=== PATIENT | male | born 1940 | race Caucasian/White ===

== ENCOUNTER → 2017-02-16 | Outpatient (CLI) | payer OTHER ==
[~2017-02-16] MED LIST: AMLODIPINE5 MG PO; ASPIRIN325 MG PO; BUMEX1 MG PO; CARAFATE1 G1 PO; CIPRO250 MG PO; CIPRO500 MG PO; COREG25 MG PO; DOXYCYCLINE100 M4 PO; GLYBURIDE5 MG PO; IBUPROFEN 30 M800 MG PO; IMDUR30 MG PO; KEFLEX500 MG PO; LASIX40 MG PO; METFORMIN ER500 MG PO; NATURE'S BLEND F1 MG PO; NIACIN500 M3 PO; OMEGA 31000 MG PO; POTASSIUM20 MEQ PO; PRAVASTATIN SOD40 MG PO; PROTONIX TR40 M1 PO; QUINAPRIL40 MG PO; SILYMARIN1 POW; TRICOR145 MG PO; VICODIN 5/500 505 MG PO; XARELTO10 PO; [UNRECOGNIZED DRUG - OTHER] PO; [UNRECOGNIZED DRUG - OTHER] PO; [UNRECOGNIZED DRUG - OTHER] PO
[2017-02-16 12:11] LABS: BASO # 0.1 10*3/uL (0.0-0.1); BASO % 0.7 % (0.0-1.0); EOS # 0.6 10*3/uL (0.0-0.4); EOS % 5.2 % (1.0-4.0); HEMATOCRIT 39.1 % (42.0-52.0); HEMOGLOBIN 13.6 g/dl (14.0-18.0); IG # 0.1 10*3/uL (0.0-0.1); LYMPH # 2.4 10*3/uL (1.3-4.4); LYMPH % 20.5 % (27.0-41.0); MEAN CELL VOLUME 88.3 fl (80.0-94.0); MEAN CORPUSCULAR HGB 30.7 pg (27.0-31.0); MEAN CORPUSCULAR HGB CONC 34.8 g/dl (33.0-37.0); MEAN PLATELET VOLUME 9.9 fl (9.6-12.3); MONO % 8.2 % (3.0-9.0); NEUT # 7.7 10*3/uL (2.3-7.9); PLATELET COUNT AUTOMATED 226 10*3/uL (130-400); RED BLOOD COUNT 4.43 10*6/uL (4.50-5.90); RED CELL DISTRI WIDTH 13.1 % (0-14.5); WHITE BLOOD COUNT 11.8 10*3/uL (4.8-10.8)
== END | disposition home or self-care (01) ==
LOC: LAB 11:59
PROVIDERS: Family Medicine
DX: L02.214 Cutaneous abscess of groin (principal)

== ENCOUNTER → 2018-01-01 | Outpatient (CLI) | payer OTHER ==
[2018-01-01 15:26] LABS: HEMATOCRIT 38.4 % (42.0-52.0); HEMOGLOBIN 13.5 g/dl (14.0-18.0); MEAN CELL VOLUME 90.6 fl (80.0-94.0); MEAN CORPUSCULAR HGB 31.8 pg (27.0-31.0); MEAN CORPUSCULAR HGB CONC 35.2 g/dl (33.0-37.0); MEAN PLATELET VOLUME 9.6 fl (9.6-12.3); PLATELET COUNT AUTOMATED 201 10*3/uL (130-400); RED BLOOD COUNT 4.24 10*6/uL (4.50-5.90); RED CELL DISTRI WIDTH 13.4 % (0-14.5); WHITE BLOOD COUNT 16.8 10*3/uL (4.8-10.8)
[2018-01-01 15:37] LABS: ALBUMIN 2.9 gm/dl (3.1-4.5); BILIRUBIN, DIRECT 0.2 mg/dL (0.0-0.2); CREATININE 1.83 mg/dL (0.70-1.30); POTASSIUM 4.3 mmol/L (3.5-5.1); TOTAL PROTEIN 6.2 gm/dL (6.4-8.2)
[2018-01-01 15:52] LABS: ATYPICAL LYMPHS 1 % (0-0); PLATELET SUFFICIENCY NORMAL (NORMAL); TOTAL CELLS COUNTED 100 #CELLS
== END | disposition home or self-care (01) ==
LOC: LAB 14:21 → US 15:00
PROVIDERS: Family Medicine
DX: N43.3 Hydrocele, unspecified (principal); R19.04 Left lower quadrant abdominal swelling, mass and lump

== ENCOUNTER → 2018-01-09 | Outpatient (CLI) | payer OTHER ==
[2018-01-09 11:54] LABS: BASO % 0.2 % (0.0-1.0); HEMATOCRIT 37.9 % (42.0-52.0); HEMOGLOBIN 12.9 g/dl (14.0-18.0); LYMPH # 0.9 10*3/uL (1.3-4.4); LYMPH % 6.4 % (27.0-41.0); MEAN CELL VOLUME 90.7 fl (80.0-94.0); MEAN CORPUSCULAR HGB 30.9 pg (27.0-31.0); MEAN PLATELET VOLUME 9.2 fl (9.6-12.3); MONO # 0.5 10*3/uL (0.1-1.0); MONO % 3.2 % (3.0-9.0); NEUT # 12.3 10*3/uL (2.3-7.9); NEUT % 88.5 % (47.0-73.0); PLATELET COUNT AUTOMATED 246 10*3/uL (130-400); RED BLOOD COUNT 4.18 10*6/uL (4.50-5.90); WHITE BLOOD COUNT 13.9 10*3/uL (4.8-10.8)
== END | disposition home or self-care (01) ==
LOC: LAB 11:33
PROVIDERS: Family Medicine
DX: D72.829 Elevated white blood cell count, unspecified (principal)

== ENCOUNTER → 2018-04-06 | Outpatient (CLI) | payer OTHER ==
[~2018-04-06] MED LIST changes: +ALPHA LIPOIC A600 MG PO; +AMARYL2 MG PO; +BAYER ASPIRIN C81 MG PO; +CYTOMEL5 MCG PO; +DOXYCYCLINE100 MG PO; +FISH OIL CONC1000 M1 PO; +LATANOPROST2.5 ML OU; +MAXITROL OPHTHAL5 ML OPH; +PERCOCET 10-321 EACH PO; +PREDNISONE20 M1 PO; +SYNTHROID,LEVO75 MCG PO; +VITAMIN D-32000 UNIT PO
[2018-04-06 15:00] LABS: BASO # 0.1 10*3/uL (0.0-0.1); BASO % 0.2 % (0.0-1.0); EOS % 0.1 % (1.0-4.0); HEMATOCRIT 39.5 % (42.0-52.0); HEMOGLOBIN 13.5 g/dl (14.0-18.0); LYMPH # 1.3 10*3/uL (1.3-4.4); LYMPH % 6.3 % (27.0-41.0); MEAN CELL VOLUME 90.6 fl (80.0-94.0); MEAN CORPUSCULAR HGB CONC 34.2 g/dl (33.0-37.0); MEAN PLATELET VOLUME 9.6 fl (9.6-12.3); MONO % 4.5 % (3.0-9.0); NEUT # 18.8 10*3/uL (2.3-7.9); NEUT % 88.1 % (47.0-73.0); PLATELET COUNT AUTOMATED 204 10*3/uL (130-400); RED BLOOD COUNT 4.36 10*6/uL (4.50-5.90); RED CELL DISTRI WIDTH 13.7 % (0-14.5); WHITE BLOOD COUNT 21.3 10*3/uL (4.8-10.8)
[2018-04-06 15:24] LABS: ALBUMIN 3.3 gm/dl (3.1-4.5); BILIRUBIN, DIRECT 0.3 mg/dL (0.0-0.2); CREATININE 1.8 mg/dL (0.70-1.30); POTASSIUM 4.3 mmol/L (3.5-5.1); THYROXINE (T4) TOTAL 6.7 ug/dl (4.5-12.1); TOTAL PROTEIN 7.1 gm/dL (6.4-8.2)
[2018-04-06 15:32] LABS: THYROID STIM HORMONE (HS) 0.468 uIU/ml (0.358-4.75)
[2018-04-07 07:09] LABS: FREE T3 010389 2.7 pg/mL (2.0-4.4)
[2018-04-07 08:11] LABS: ANTI-STREPTOLYSIN O AB 006031 <20.0 IU/mL (0.0-200.0)
== END ==
LOC: LAB 14:41
PROVIDERS: Family Medicine
DX: E11.9 Type 2 diabetes mellitus without complications (principal); M54.5 Low back pain; M79.1 Myalgia; G83.9 Paralytic syndrome, unspecified

== ENCOUNTER 2018-04-08 13:59 | Inpatient (IN) | payer OTHER ==
[~2018-04-08] VITALS: Ht 177.8 cm; Wt 116.2 kg
--- NOTE | ~2018-04-08 | PROC NOTE ---
[place], [place] PROCEDURE NOTE NAME: [id number] UNIT #: [id number] ROOM: 402 DOCTOR: JONNATHAN PÉREZ MD BIRTHDATE: [birth year] DOS: 04/11/2018 PREOPERATIVE DIAGNOSIS: Right arm abscess. POSTOPERATIVE DIAGNOSIS: Right arm abscess. PROCEDURE: Incision and drainage, right arm abscess. SURGEON: Jonnathan Pérez MD PARK INTERPRETER: ALEJANDRA. ANESTHESIA: MAC with local. INDICATIONS: This is a 77-year-old gentleman admitted with right arm cellulitis and now has developed an abscess. It was decided to take the patient to the operating room for an incision and drainage of this right arm abscess. The procedure and its complications were explained to the patient in detail preoperatively. Complications that were discussed included but were not limited to, bleeding, prolonged pain, and damage to underlying vital structures. He agreed to proceed. DESCRIPTION OF PROCEDURE: After identifying the patient, the patient was brought to the operating suite and laid in the supine position. After IV sedation was administered, a timeout procedure was called and the patient's arm was placed in an appropriate position so that the abscess which was in the posterior aspect of the arm could be reached safely. The parts were then painted and draped in the usual sterile fashion. An incision was marked with the help of marking pen and local anesthesia was infiltrated. Thereafter, an incision was made and the abscess cavity was entered. Minimal seropurulent discharge was encountered and a specimen of this was sent for culture and sensitivity. Thereafter, the abscess cavity was packed with the help of a quarter inch iodoform pack and a dressing was placed. The patient was brought back to the recovery room in stable fashion. There were no complications. Dr. Jonnathan Pérez, the attending surgeon, was present throughout the operating case. Jonnathan Pérez MD CM:PROCNOTE:PROCEDURE NOTE [id number] JONNATHAN PÉREZ MD
[~2018-04-08 13:59] MED LIST changes: -ALPHA LIPOIC A600 MG PO; -AMARYL2 MG PO; -BAYER ASPIRIN C81 MG PO; -CYTOMEL5 MCG PO; -DOXYCYCLINE100 MG PO; -FISH OIL CONC1000 M1 PO; -LATANOPROST2.5 ML OU; -MAXITROL OPHTHAL5 ML OPH; -PERCOCET 10-321 EACH PO; -PREDNISONE20 M1 PO; -SYNTHROID,LEVO75 MCG PO; -VITAMIN D-32000 UNIT PO
[2018-04-08 14:03] VITALS: BP 138/64
[2018-04-08 14:36] LABS: BASO # 0.1 10*3/uL (0.0-0.1); BASO % 0.3 % (0.0-1.0); EOS # 0.3 10*3/uL (0.0-0.4); EOS % 1.5 % (1.0-4.0); LYMPH # 2.5 10*3/uL (1.3-4.4); LYMPH % 13.4 % (27.0-41.0); MEAN CELL VOLUME 91.8 fl (80.0-94.0); MEAN CORPUSCULAR HGB 30.6 pg (27.0-31.0); MEAN CORPUSCULAR HGB CONC 33.3 g/dl (33.0-37.0); MONO # 1.1 10*3/uL (0.1-1.0); MONO % 5.8 % (3.0-9.0); NEUT # 14.5 10*3/uL (2.3-7.9); NEUT % 78.6 % (47.0-73.0); PLATELET COUNT AUTOMATED 203 10*3/uL (130-400); RED BLOOD COUNT 3.92 10*6/uL (4.50-5.90); WHITE BLOOD COUNT 18.5 10*3/uL (4.8-10.8)
[2018-04-08] MEDS ORDERED: BAYER ASPIRIN C81 MG PO (14:40)
[2018-04-08] MEDS ORDERED: ALPHA LIPOIC A600 MG PO (14:40)
[2018-04-08] MEDS ORDERED: SYNTHROID,LEVO75 MCG PO (14:41)
[2018-04-08] MEDS ORDERED: CYTOMEL5 MCG PO (14:42)
[2018-04-08] MEDS ORDERED: QUINAPRIL40 MG PO (14:42)
[2018-04-08] MEDS ORDERED: PREDNISONE20 M1 PO (14:44)
[2018-04-08] MEDS ORDERED: PERCOCET 10-321 EACH PO (14:52)
[2018-04-08 14:53] LABS: ALBUMIN 2.8 gm/dl (3.1-4.5); ALKALINE PHOSPHATASE 75 U/L (45-117); CHLORIDE 109 mmol/L (98-107); CREATININE 2.13 mg/dL (0.70-1.30); POTASSIUM 4.2 mmol/L (3.5-5.1); SGOT/AST 23 IU/L (3-35); SGPT/ALT 25 U/L (12-78); SODIUM 140 mmol/L (136-145); TOTAL PROTEIN 6.6 gm/dL (6.4-8.2)
[2018-04-08] MEDS ORDERED: LASIX40 MG PO (14:53)
[2018-04-08] MEDS ORDERED: LATANOPROST2.5 ML OU (14:55)
[2018-04-08 14:56] LABS: BUN 49 mg/dl (7-24)
[2018-04-08 14:57] LABS: TROPONIN I < 0.015 ng/ml (<0.045)
[2018-04-08 15:33] LABS: BILIRUBIN NEGATIVE (NEGATIVE); BLOOD NEGATIVE (NEGATIVE); CLARITY SL CLOUDY (CLEAR); COLOR YELLOW (YELLOW); GLUCOSE NEGATIVE (NEGATIVE); KETONE NEGATIVE (NEGATIVE); LEUKO ESTERASE TRACE (NEGATIVE); NITRITE NEGATIVE (NEGATIVE); SPECIFIC GRAVITY >= 1.030 (1.005-1.030); UROBILINOGEN 0.2 E.U./dl (0.2-1.0)
[2018-04-08 15:47] LABS: HYALINE CAST TNTC
[2018-04-08 15:50] VITALS: BP 125/65
[2018-04-08 16:00] VITALS: BP 137/80
[2018-04-08 16:18] VITALS: BP 137/80
[2018-04-08] MEDS ORDERED: FISH OIL CONC1000 M1 PO (17:56)
[2018-04-08] MEDS ORDERED: AMARYL2 MG PO (17:57)
[2018-04-08] MEDS ORDERED: MAXITROL OPHTHAL5 ML OPH (18:02)
[2018-04-08 20:00] VITALS: BP 130/60
[2018-04-08 22:31] LABS: CREATININE 1.92 mg/dL (0.70-1.30); POTASSIUM 3.9 mmol/L (3.5-5.1)
[2018-04-09] VITALS: BP 146/61
[2018-04-09 06:42] LABS: HEMATOCRIT 37.4 % (42.0-52.0); HEMOGLOBIN 12.2 g/dl (14.0-18.0); MEAN CELL VOLUME 90.8 fl (80.0-94.0); MEAN CORPUSCULAR HGB 29.6 pg (27.0-31.0); MEAN CORPUSCULAR HGB CONC 32.6 g/dl (33.0-37.0); MEAN PLATELET VOLUME 9.8 fl (9.6-12.3); PLATELET COUNT AUTOMATED 226 10*3/uL (130-400); RED BLOOD COUNT 4.12 10*6/uL (4.50-5.90); RED CELL DISTRI WIDTH 13.1 % (0-14.5); WHITE BLOOD COUNT 15.3 10*3/uL (4.8-10.8)
[2018-04-09 07:05] LABS: POTASSIUM 4.2 mmol/L (3.5-5.1)
[2018-04-09 07:17] LABS: CREATININE 1.81 mg/dL (0.70-1.30); PHOSPHOROUS 3.3 mg/dL (2.5-4.9); THYROID STIM HORMONE (HS) 0.458 uIU/ml (0.358-4.75)
[2018-04-09 07:40] LABS: VITAMIN D, 25-HYDROXY 22.1 ng/mL (30-100)
[2018-04-09 07:56] LABS: PLATELET SUFFICIENCY NORMAL (NORMAL); TOTAL CELLS COUNTED 100 #CELLS
[2018-04-09 08:00] VITALS: BP 154/73
[2018-04-09 10:32] VITALS: BP 96/54
[2018-04-09 12:00] VITALS: BP 143/67
[2018-04-09 16:00] VITALS: BP 141/67
[2018-04-09 20:00] VITALS: BP 136/59
[2018-04-10] VITALS: BP 140/60
[2018-04-10 07:49] LABS: BASO # 0.1 10*3/uL (0.0-0.1); BASO % 0.5 % (0.0-1.0); EOS # 0.2 10*3/uL (0.0-0.4); EOS % 1.7 % (1.0-4.0); HEMATOCRIT 38.7 % (42.0-52.0); HEMOGLOBIN 12.7 g/dl (14.0-18.0); LYMPH # 2.2 10*3/uL (1.3-4.4); LYMPH % 17.5 % (27.0-41.0); MEAN CELL VOLUME 91.7 fl (80.0-94.0); MEAN CORPUSCULAR HGB 30.1 pg (27.0-31.0); MEAN CORPUSCULAR HGB CONC 32.8 g/dl (33.0-37.0); MEAN PLATELET VOLUME 9.5 fl (9.6-12.3); MONO # 0.8 10*3/uL (0.1-1.0); MONO % 6.1 % (3.0-9.0); NEUT # 9.3 10*3/uL (2.3-7.9); NEUT % 73.7 % (47.0-73.0); PLATELET COUNT AUTOMATED 270 10*3/uL (130-400); RED BLOOD COUNT 4.22 10*6/uL (4.50-5.90); RED CELL DISTRI WIDTH 13.1 % (0-14.5); WHITE BLOOD COUNT 12.6 10*3/uL (4.8-10.8)
[2018-04-10 07:56] LABS: CREATININE 1.55 mg/dL (0.70-1.30); POTASSIUM 4.2 mmol/L (3.5-5.1)
[2018-04-10 08:00] VITALS: BP 166/73
[2018-04-10 12:00] VITALS: BP 147/65
[2018-04-10 16:00] VITALS: BP 153/66
[2018-04-10 20:00] VITALS: BP 135/67
[2018-04-11] VITALS: BP 173/80
[2018-04-11 06:25] LABS: BASO % 0.2 % (0.0-1.0); EOS % 0.2 % (1.0-4.0); HEMATOCRIT 35.3 % (42.0-52.0); HEMOGLOBIN 11.6 g/dl (14.0-18.0); LYMPH # 1.6 10*3/uL (1.3-4.4); LYMPH % 13.4 % (27.0-41.0); MEAN CELL VOLUME 90.1 fl (80.0-94.0); MEAN CORPUSCULAR HGB 29.6 pg (27.0-31.0); MEAN CORPUSCULAR HGB CONC 32.9 g/dl (33.0-37.0); MEAN PLATELET VOLUME 9.4 fl (9.6-12.3); MONO # 0.8 10*3/uL (0.1-1.0); MONO % 6.1 % (3.0-9.0); NEUT # 9.7 10*3/uL (2.3-7.9); NEUT % 79.6 % (47.0-73.0); PLATELET COUNT AUTOMATED 281 10*3/uL (130-400); RED BLOOD COUNT 3.92 10*6/uL (4.50-5.90); RED CELL DISTRI WIDTH 12.8 % (0-14.5); WHITE BLOOD COUNT 12.2 10*3/uL (4.8-10.8)
[2018-04-11 06:37] LABS: CREATININE 1.44 mg/dL (0.70-1.30); POTASSIUM 3.6 mmol/L (3.5-5.1)
[2018-04-11 11:16] VITALS: BP 184/85
[2018-04-11 11:42] VITALS: BP 162/80
[2018-04-11 11:57] VITALS: BP 164/79
[2018-04-11 12:12] VITALS: BP 167/76
[2018-04-11] MEDS ORDERED: DOXYCYCLINE100 MG PO (14:26)
[2018-04-11] MEDS ORDERED: VITAMIN D-32000 UNIT PO (14:26)
== END 2018-04-11 15:59 | disposition home or self-care (01) | DRG 682 ==
LOC: ED 13:59 → EDHOLD 15:43 → 4E 15:43
PROVIDERS: Internal Medicine; Internal Medicine Hospice and Palliative Medicine; Physician Assistant
PROC: 0H9BXZZ Drainage of Right Upper Arm Skin, External Approach (ICD-10-PCS; principal; 2018-04-11)
DX: N17.0 Acute kidney failure with tubular necrosis (principal); E43 Unspecified severe protein-calorie malnutrition; E11.65 Type 2 diabetes mellitus with hyperglycemia; E87.0 Hyperosmolality and hypernatremia; E11.51 Type 2 diabetes mellitus with diabetic peripheral angiopathy without gangrene; D64.9 Anemia, unspecified; E11.9 Type 2 diabetes mellitus without complications; L03.113 Cellulitis of right upper limb; L02.413 Cutaneous abscess of right upper limb; E66.01 Morbid (severe) obesity due to excess calories; M54.5 Low back pain; N18.3 Chronic kidney disease, stage 3 (moderate); I12.9 Hypertensive chronic kidney disease with stage 1 through stage 4 chronic kidney disease, or unspecified chronic kidney disease; E87.8 Other disorders of electrolyte and fluid balance, not elsewhere classified; M48.061 Spinal stenosis, lumbar region without neurogenic claudication; R80.1 Persistent proteinuria, unspecified; G89.29 Other chronic pain; Z96.1 Presence of intraocular lens; I25.10 Atherosclerotic heart disease of native coronary artery without angina pectoris; M10.9 Gout, unspecified; M19.90 Unspecified osteoarthritis, unspecified site; R79.89 Other specified abnormal findings of blood chemistry; Z79.82 Long term (current) use of aspirin; Z79.899 Other long term (current) drug therapy; Z98.49 Cataract extraction status, unspecified eye; Z83.3 Family history of diabetes mellitus; Z85.820 Personal history of malignant melanoma of skin; Z90.49 Acquired absence of other specified parts of digestive tract; Z82.49 Family history of ischemic heart disease and other diseases of the circulatory system; Z80.1 Family history of malignant neoplasm of trachea, bronchus and lung; Z79.84 Long term (current) use of oral hypoglycemic drugs; Z68.36 Body mass index [BMI] 36.0-36.9, adult

== ENCOUNTER → 2018-04-13 | Outpatient (CLI) | payer OTHER ==
[~2018-04-13] MED LIST changes: +ALPHA LIPOIC A600 MG PO; +AMARYL2 MG PO; +BAYER ASPIRIN C81 MG PO; +CYTOMEL5 MCG PO; +DOXYCYCLINE100 MG PO; +FISH OIL CONC1000 M1 PO; +LATANOPROST2.5 ML OU; +MAXITROL OPHTHAL5 ML OPH; +PERCOCET 10-321 EACH PO; +PREDNISONE20 M1 PO; +SYNTHROID,LEVO75 MCG PO; +VITAMIN D-32000 UNIT PO
== END | disposition home or self-care (01) ==
LOC: WOUNDCARE 03:44
DX: S40.861A Insect bite (nonvenomous) of right upper arm, initial encounter (principal); E11.9 Type 2 diabetes mellitus without complications; I10 Essential (primary) hypertension; Z87.891 Personal history of nicotine dependence; Z90.49 Acquired absence of other specified parts of digestive tract; Z96.651 Presence of right artificial knee joint; Z98.49 Cataract extraction status, unspecified eye; Z85.820 Personal history of malignant melanoma of skin; W57.XXXA Bitten or stung by nonvenomous insect and other nonvenomous arthropods, initial encounter; Y93.89 Activity, other specified; Y92.89 Other specified places as the place of occurrence of the external cause; Y99.8 Other external cause status

== ENCOUNTER → 2018-07-09 | Outpatient (CLI) | payer OTHER ==
[2018-07-09 08:12] LABS: CREATININE 1.41 mg/dL (0.70-1.30); POTASSIUM 4.2 mmol/L (3.5-5.1)
== END | disposition home or self-care (01) ==
LOC: LAB 07:45 → MRI 08:00
PROVIDERS: Family Medicine
DX: S46.811A Strain of other muscles, fascia and tendons at shoulder and upper arm level, right arm, initial encounter (principal); M19.011 Primary osteoarthritis, right shoulder; M75.51 Bursitis of right shoulder; D17.21 Benign lipomatous neoplasm of skin and subcutaneous tissue of right arm; X58.XXXA Exposure to other specified factors, initial encounter; Y93.89 Activity, other specified; Y92.89 Other specified places as the place of occurrence of the external cause; Y99.8 Other external cause status

== ENCOUNTER → 2018-09-26 | Outpatient (CLI) | payer OTHER | END | disposition home or self-care (01) | LOC: RAD 07:56 | DX: K21.9 Gastro-esophageal reflux disease without esophagitis (principal) ==

== ENCOUNTER → 2021-12-13 | Outpatient (CLI) | payer OTHER ==
[2021-12-13 13:39] LABS: CREATININE 2.76 mg/dL (0.70-1.30)
== END | disposition home or self-care (01) ==
LOC: MRI 13:00
PROVIDERS: Radiology Diagnostic Radiology; ATTEND Optometrist
DX: I67.89 Other cerebrovascular disease (principal); H53.2 Diplopia

== ENCOUNTER 2022-06-17 15:14 | Emergency (ER) | payer OTHER ==
[~2022-06-17] VITALS: Ht 177.8 cm; Wt 98.0 kg
[2022-06-17 15:19] VITALS: BP 128/69
[2022-06-17 16:47] LABS: BASO % 0.5 % (0.0-1.0); EOS # 0.3 10*3/uL (0.0-0.4); EOS % 4.1 % (1.0-4.0); HEMATOCRIT 33.4 % (42.0-52.0); LYMPH # 1.6 10*3/uL (1.3-4.4); LYMPH % 24.3 % (27.0-41.0); MEAN CELL VOLUME 88.1 fl (80.0-94.0); MEAN CORPUSCULAR HGB 30.1 pg (27.0-31.0); MEAN CORPUSCULAR HGB CONC 34.1 g/dl (33.0-37.0); MEAN PLATELET VOLUME 9.3 fl (9.6-12.3); MONO # 0.5 10*3/uL (0.1-1.0); NEUT % 62.8 % (47.0-73.0); PLATELET COUNT AUTOMATED 291 10*3/uL (130-400); RED BLOOD COUNT 3.79 10*6/uL (4.50-5.90); RED CELL DISTRI WIDTH 12.5 % (0-14.5); WHITE BLOOD COUNT 6.4 10*3/uL (4.8-10.8)
[2022-06-17 16:58] LABS: ACT PARTIAL THROMBO TIME 31.1 SECONDS (20.0-32.1); INTERNATIONAL NORM RATIO 1.1 (2.0-3.5)
[2022-06-17 17:07] LABS: CREATININE 2.55 mg/dL (0.70-1.30); POTASSIUM 3.7 mmol/L (3.5-5.1); TOTAL PROTEIN 6.1 gm/dL (6.4-8.2)
[2022-06-17 17:39] LABS: BILIRUBIN Negative (Negative); BLOOD Negative (Negative); CLARITY Clear (Clear); COLOR Yellow (Yellow); GLUCOSE 1+ (Negative); KETONE Negative (Negative); LEUKO ESTERASE Negative (Negative); NITRITE Negative (Negative); SPECIFIC GRAVITY 1.015 (1.001-1.030); UROBILINOGEN 0.2 E.U./dl (0.0-1.0)
[2022-06-17 18:33] LABS: BACTERIA TRACE; WBC 0-2 wbc/hpf (0-5)
== END 2022-06-17 20:46 | disposition home or self-care (01) ==
LOC: ED 15:14
PROVIDERS: Emergency Medicine
DX: I12.9 Hypertensive chronic kidney disease with stage 1 through stage 4 chronic kidney disease, or unspecified chronic kidney disease (principal); N18.9 Chronic kidney disease, unspecified; M10.9 Gout, unspecified; I25.10 Atherosclerotic heart disease of native coronary artery without angina pectoris

== ENCOUNTER 2022-09-09 21:50 | Emergency (ER) | payer OTHER ==
[2022-09-09 22:15] VITALS: BP 184/73
[2022-09-09] MEDS ORDERED: NAPROXEN250 MG PO (23:51)
== END 2022-09-10 | disposition home or self-care (01) ==
LOC: ED 21:50
DX: S40.022A Contusion of left upper arm, initial encounter (principal); S20.212A Contusion of left front wall of thorax, initial encounter; S00.83XA Contusion of other part of head, initial encounter; Z79.899 Other long term (current) drug therapy; Z79.82 Long term (current) use of aspirin; Z98.890 Other specified postprocedural states; Z90.49 Acquired absence of other specified parts of digestive tract; W18.39XA Other fall on same level, initial encounter; Y93.89 Activity, other specified; Y92.89 Other specified places as the place of occurrence of the external cause; Y99.8 Other external cause status

== ENCOUNTER 2022-11-01 21:38 | Emergency (ER) | payer OTHER ==
[~2022-11-01] VITALS: Ht 182.8 cm; Wt 95.3 kg
[~2022-11-01 21:38] MED LIST changes: +NAPROXEN250 MG PO
[2022-11-01 21:42] VITALS: BP 175/66
== END 2022-11-02 00:15 | disposition home or self-care (01) ==
LOC: ED 21:38
DX: S16.1XXA Strain of muscle, fascia and tendon at neck level, initial encounter (principal); E11.22 Type 2 diabetes mellitus with diabetic chronic kidney disease; N18.9 Chronic kidney disease, unspecified; I73.9 Peripheral vascular disease, unspecified; I12.9 Hypertensive chronic kidney disease with stage 1 through stage 4 chronic kidney disease, or unspecified chronic kidney disease; I25.10 Atherosclerotic heart disease of native coronary artery without angina pectoris; N18.30 Chronic kidney disease, stage 3 unspecified; M19.90 Unspecified osteoarthritis, unspecified site; R79.82 Elevated C-reactive protein (CRP); Z90.49 Acquired absence of other specified parts of digestive tract; Z98.890 Other specified postprocedural states; Z98.49 Cataract extraction status, unspecified eye; Z96.1 Presence of intraocular lens; F17.200 Nicotine dependence, unspecified, uncomplicated; W17.89XA Other fall from one level to another, initial encounter; Y93.89 Activity, other specified; Y92.89 Other specified places as the place of occurrence of the external cause; Y99.8 Other external cause status

== ENCOUNTER → 2022-12-12 | Outpatient (CLI) | payer OTHER ==
[2022-12-12 12:13] LABS: BASO # 0.1 10*3/uL (0.0-0.1); BASO % 0.7 % (0.0-1.0); EOS # 0.5 10*3/uL (0.0-0.4); EOS % 4.9 % (1.0-4.0); HEMATOCRIT 36.6 % (42.0-52.0); LYMPH # 1.8 10*3/uL (1.3-4.4); LYMPH % 19.6 % (27.0-41.0); MEAN CELL VOLUME 89.7 fl (80.0-94.0); MEAN CORPUSCULAR HGB 29.7 pg (27.0-31.0); MEAN CORPUSCULAR HGB CONC 33.1 g/dl (33.0-37.0); MEAN PLATELET VOLUME 9.7 fl (9.6-12.3); MONO # 0.7 10*3/uL (0.1-1.0); MONO % 7.1 % (3.0-9.0); NEUT # 6.2 10*3/uL (2.3-7.9); NEUT % 67.5 % (47.0-73.0); PLATELET COUNT AUTOMATED 215 10*3/uL (130-400); RED BLOOD COUNT 4.08 10*6/uL (4.50-5.90); RED CELL DISTRI WIDTH 13.4 % (0-14.5); WHITE BLOOD COUNT 9.2 10*3/uL (4.8-10.8)
[2022-12-12 12:31] LABS: POTASSIUM 5.1 mmol/L (3.4-5.1); THYROID STIM HORMONE (HS) 2.484 uIU/ml (0.550-4.780); TOTAL PROTEIN 6.9 gm/dL (6.0-8.0)
[2022-12-12 12:49] LABS: VITAMIN D, 25-HYDROXY 42.1 ng/mL (30-100)
== END | disposition home or self-care (01) ==
LOC: LAB 11:36
PROVIDERS: ATTEND Psychiatry & Neurology Neurology
DX: E11.9 Type 2 diabetes mellitus without complications (principal); E03.9 Hypothyroidism, unspecified; I10 Essential (primary) hypertension; N18.30 Chronic kidney disease, stage 3 unspecified

== ENCOUNTER 2023-02-06 19:51 | Emergency (ER) | payer OTHER ==
[~2023-02-06] VITALS: Ht 177.8 cm; Wt 102.1 kg
[2023-02-06 20:12] VITALS: BP 156/65
[2023-02-06] MEDS ORDERED: METHOCARBAMOL500 M1 PO (21:05)
[2023-02-06] MEDS ORDERED: NAPROXEN250 MG PO (21:05)
== END 2023-02-06 21:08 | disposition home or self-care (01) ==
LOC: ED 19:51
DX: S40.011A Contusion of right shoulder, initial encounter (principal); I25.10 Atherosclerotic heart disease of native coronary artery without angina pectoris; I10 Essential (primary) hypertension; M10.9 Gout, unspecified; Z90.49 Acquired absence of other specified parts of digestive tract; Z96.651 Presence of right artificial knee joint; Z98.890 Other specified postprocedural states; Z98.42 Cataract extraction status, left eye; Z98.41 Cataract extraction status, right eye; Z96.1 Presence of intraocular lens; Z87.891 Personal history of nicotine dependence; W01.0XXA Fall on same level from slipping, tripping and stumbling without subsequent striking against object, initial encounter; Y93.89 Activity, other specified; Y92.009 Unspecified place in unspecified non-institutional (private) residence as the place of occurrence of the external cause; Y99.8 Other external cause status

== ENCOUNTER → 2023-08-17 | Outpatient (CLI) | payer OTHER ==
[~2023-08-17] MED LIST changes: +METHOCARBAMOL500 M1 PO
== END | disposition home or self-care (01) ==
LOC: RAD/SH 08:39
PROVIDERS: ATTEND Family Medicine
DX: R13.12 Dysphagia, oropharyngeal phase (principal)

== ENCOUNTER → 2023-08-25 | Outpatient (CLI) | payer OTHER | END | disposition home or self-care (01) | LOC: US 09:42 | PROVIDERS: ATTEND Internal Medicine Nephrology | DX: N28.89 Other specified disorders of kidney and ureter (principal); N20.0 Calculus of kidney; N28.1 Cyst of kidney, acquired; N40.0 Benign prostatic hyperplasia without lower urinary tract symptoms ==

== ENCOUNTER → 2023-10-24 | Outpatient (CLI) | payer MEDICARE ==
[2023-10-24 13:32] LABS: BASO # 0.1 10*3/uL (0.0-0.1); BASO % 0.6 % (0.0-1.0); EOS # 0.4 10*3/uL (0.0-0.4); EOS % 3.7 % (1.0-4.0); HEMATOCRIT 33.9 % (42.0-52.0); LYMPH # 1.6 10*3/uL (1.3-4.4); LYMPH % 17.1 % (27.0-41.0); MEAN CELL VOLUME 96.3 fl (80.0-94.0); MEAN CORPUSCULAR HGB 30.1 pg (27.0-31.0); MEAN CORPUSCULAR HGB CONC 31.3 g/dl (33.0-37.0); MEAN PLATELET VOLUME 10.7 fl (9.6-12.3); MONO # 0.7 10*3/uL (0.1-1.0); MONO % 7.3 % (3.0-9.0); NEUT # 6.7 10*3/uL (2.3-7.9); PLATELET COUNT AUTOMATED 210 10*3/uL (130-400); RED BLOOD COUNT 3.52 10*6/uL (4.50-5.90); RED CELL DISTRI WIDTH 14.3 % (0-14.5); WHITE BLOOD COUNT 9.4 10*3/uL (4.8-10.8)
[2023-10-24 13:50] LABS: POTASSIUM 4.8 mmol/L (3.4-5.1)
== END | disposition home or self-care (01) ==
LOC: LAB 13:13
PROVIDERS: ATTEND Family Medicine
DX: N18.9 Chronic kidney disease, unspecified (principal)

== ENCOUNTER → 2023-11-08 | Outpatient (CLI) | payer OTHER | END | disposition home or self-care (01) | LOC: LAB 11:44 | PROVIDERS: ATTEND Internal Medicine | DX: N18.4 Chronic kidney disease, stage 4 (severe) (principal) ==

== ENCOUNTER 2023-12-08 10:03 | Emergency (ER) | payer MEDICARE ==
[~2023-12-08] VITALS: Ht 177.8 cm; Wt 99.3 kg
[2023-12-08] MEDS ORDERED: Acetaminophen/Oxycodone 5 MG/325 MG TABLET PO ONE (14:30)
[2023-12-08 14:56] LABS: BASO % 0.3 % (0.0-1.0); EOS # 0.5 10*3/uL (0.0-0.4); EOS % 5.5 % (1.0-4.0); HEMATOCRIT 30.6 % (42.0-52.0); LYMPH # 1.4 10*3/uL (1.3-4.4); LYMPH % 15.5 % (27.0-41.0); MEAN CELL VOLUME 96.8 fl (80.0-94.0); MEAN CORPUSCULAR HGB 30.7 pg (27.0-31.0); MEAN CORPUSCULAR HGB CONC 31.7 g/dl (33.0-37.0); MEAN PLATELET VOLUME 10.7 fl (9.6-12.3); MONO # 0.7 10*3/uL (0.1-1.0); MONO % 8.2 % (3.0-9.0); NEUT # 6.2 10*3/uL (2.3-7.9); NEUT % 70.2 % (47.0-73.0); PLATELET COUNT AUTOMATED 158 10*3/uL (130-400); RED BLOOD COUNT 3.16 10*6/uL (4.50-5.90); RED CELL DISTRI WIDTH 13.3 % (0-14.5); WHITE BLOOD COUNT 8.9 10*3/uL (4.8-10.8)
[2023-12-08 15:12] LABS: ACT PARTIAL THROMBO TIME 34.6 SECONDS (20.0-32.1)
[2023-12-08 15:17] LABS: POTASSIUM 4.5 mmol/L (3.4-5.1); TOTAL PROTEIN 6.6 gm/dL (6.0-8.0)
[2023-12-08 17:56] VITALS: BP 133/55
[2023-12-08] MEDS ORDERED: PERCOCET 5-3251 EACH PO (17:57)
== END 2023-12-08 18:10 | disposition home or self-care (01) ==
LOC: ED 10:03
PROVIDERS: Emergency Medicine
DX: S32.018A Other fracture of first lumbar vertebra, initial encounter for closed fracture (principal); S32.048A Other fracture of fourth lumbar vertebra, initial encounter for closed fracture; I25.10 Atherosclerotic heart disease of native coronary artery without angina pectoris; I10 Essential (primary) hypertension; M10.9 Gout, unspecified; Z95.5 Presence of coronary angioplasty implant and graft; Z98.890 Other specified postprocedural states; Z87.891 Personal history of nicotine dependence; W01.10XA Fall on same level from slipping, tripping and stumbling with subsequent striking against unspecified object, initial encounter; Y93.89 Activity, other specified; Y92.89 Other specified places as the place of occurrence of the external cause; Y99.8 Other external cause status

== ENCOUNTER → 2024-07-08 | Outpatient (CLI) | payer MEDICARE ==
[~2024-07-08] MED LIST changes: +PERCOCET 5-3251 EACH PO
[2024-07-08 17:32] LABS: BASO # 0.1 10*3/uL (0.0-0.1); BASO % 0.5 % (0.0-1.0); EOS # 0.4 10*3/uL (0.0-0.4); EOS % 4.5 % (1.0-4.0); HEMATOCRIT 36.1 % (42.0-52.0); LYMPH # 2.3 10*3/uL (1.3-4.4); LYMPH % 25.2 % (27.0-41.0); MEAN CELL VOLUME 99.7 fl (80.0-94.0); MEAN CORPUSCULAR HGB 32.3 pg (27.0-31.0); MEAN CORPUSCULAR HGB CONC 32.4 g/dl (33.0-37.0); MEAN PLATELET VOLUME 10.6 fl (9.6-12.3); MONO # 0.7 10*3/uL (0.1-1.0); NEUT # 5.6 10*3/uL (2.3-7.9); NEUT % 61.6 % (47.0-73.0); PLATELET COUNT AUTOMATED 229 10*3/uL (130-400); RED BLOOD COUNT 3.62 10*6/uL (4.50-5.90); RED CELL DISTRI WIDTH 14.7 % (0-14.5); WHITE BLOOD COUNT 9.1 10*3/uL (4.8-10.8)
[2024-07-08 18:00] LABS: POTASSIUM 4.2 mmol/L (3.4-5.1); THYROXINE (T4) TOTAL 6.8 ug/dl (4.5-10.9); TOTAL PROTEIN 7.2 gm/dL (6.0-8.0)
== END | disposition home or self-care (01) ==
LOC: LAB 17:00
PROVIDERS: ATTEND Family Medicine
DX: E11.9 Type 2 diabetes mellitus without complications (principal); R13.10 Dysphagia, unspecified